=== PATIENT | female | born 1995 | race African-American/Black ===

== ENCOUNTER 2024-10-18 15:57 | Inpatient (IN) ==
[2024-10-18] MEDS ORDERED: OXYTOCIN/SODIUM CHLORIDE 500 ML IV PRN (16:42)
[2024-10-18] MEDS ORDERED: TRANEXAMIC ACID IN NACL 1,000 MG/100 ML BAG IV PRN (16:42)
[2024-10-18] MEDS ORDERED: NIFEdipine 10 MG CAPSULE PO PRN (16:42)
[2024-10-18] MEDS ORDERED: ACETAMINOPHEN 500 MG TABLET PO PRN (16:42)
[2024-10-18] MEDS ORDERED: LACTATED RINGERS 1,000 ML IV PRN (16:42)
[2024-10-18] MEDS ORDERED: DOCUSATE SODIUM 100 MG CAPSULE PO PRN (16:42)
[2024-10-18] MEDS ORDERED: ONDANSETRON ODT 4 MG TABLET PO PRN (16:42)
[2024-10-18] MEDS ORDERED: CALCIUM CARBONATE CHEW 500 MG TABLET PO PRN (16:42)
[2024-10-18] MEDS ORDERED: hydrALAZINE INJ 20 MG/ML VIAL IVP PRN (16:42)
[2024-10-18] MEDS ORDERED: TERBUTALINE 1 MG/ML VIAL SUBQ PRN (16:42)
[2024-10-18] MEDS ORDERED: OXYTOCIN 10 UNIT/ML VIAL IM PRN (16:42)
[2024-10-18] MEDS ORDERED: lidocaine 1% 20 ML MDV ID PRN (16:42)
[2024-10-18] MEDS ORDERED: LABETALOL 20 MG/4 ML SYRINGE IVP PRN ×3 (16:42)
[2024-10-18] MEDS ORDERED: miSOPROStoL 200 MCG TABLET BC PRN (16:42)
[2024-10-18] MEDS ORDERED: METHYLERGONOVINE 0.2 MG/ML VIAL IM PRN (16:42)
[2024-10-18] MEDS ORDERED: miSOPROStoL 200 MCG TABLET PR PRN (16:42)
[2024-10-18] MEDS ORDERED: diphenhydrAMINE INJ 50 MG/ML VIAL IVP PRN (16:42)
[2024-10-18] MEDS ORDERED: METOCLOPRAMIDE 10 MG/2 ML VIAL IVP PRN (16:42)
[2024-10-18] MEDS ORDERED: FAMOTIDINE 20 MG TABLET PO PRN (16:44)
--- NOTE | 2024-10-18 16:45 | HISTORY & PHYSICAL EXAMINATION ---
Admit History Visit Reason Visit Reason: Other (active labor) Smoking Status: Former smoker Other Maternal History Other Maternal History: HPI: Claudia is a 29 yo at 40w0d who is admitted for active labor. She was seen in clinic this afternoon and 4cm. Reports contractions becoming more frequent and painful so returned to L&D. Denies LOF, VB. + FM. She is now comfortable s/p epidural. Last growth US: 08/24 2323g, 91st%tile. monitoring form, copied from record: LMP: 01/12/2024 PATRICE by LMP: 10/18/2024 US: Final PATRICE: 10/18/24 by LMP c/w 14wk US Macrosomia - EFW 08/24 2323g, 91%tile H/o PPD - seeing telehealth during , has referral from [facility] to re- establish. Per records, took Lexapro prior to preg. Anemia in - on iron. 11.4 on 09/29. pyelectasis, normal NIPT. left pylectasis 10.4mm on 08/24/24. Will notify pediatrics Pre- Weight: 145lb BMI: 26 Blood type: A+ Antibody: negative CBC: PLT-273 HCT-37.4 HGB-12.0 RUB: immune VZV: immune HBsAg: negative HepC: negative RPR/AB-EIA: non-reactive HIV: negative PAP: 04/24/24- normal GC/CT: negative HSV: denies Genetic testing: Vince panorama and horizon 4 - neg Covid: Flu: declines FAS: per notes, pyelectasis bilaterally, left 6mm, right 4mm. EFW 401g. MVP 6.33. Growth US 08/24: EFW 2323g, 91%tile, vertex, posterior placenta, normal MANISH. left pyelectasis 10.4mm 50gm OGCT: 07/26-109 3HR GTT: n/a TDAP: 07/26/2024 Breast Pump: has Antibody screen: 3rd trimester H/H -31.8/10.2 PLT-205 3rd trimester HIV-negative GBS: Neg on 09/22 - chart on her phone Delivery plan: possible 39wk IOL MOD: Contraception: Mirena IUD at 6wk visit PE: Vitals signs reviewed Gen: NAD Chest: non labored respirations Abd: gravid, non tender. EFW 3800-4000g Ext: trace LE edema, no evidence of DVT SVE: 650/-2, cephalic. AROM performed with her consent, copious meconium stained fluid monitoring: FHTs: 130s bpm baseline, + accel, + early and variable decel, mod variability [place]: 2-3 min FHTs: Cat 2 Labs: T&S, CBC, CMP reviewed A/P: 29 yo at 40w0d who is admitted for active labor. - Labor - GBS neg - Rh + - Rubella immune - Varicella immune - S/p AROM, repeat SVE in 2 hrs or sooner PRN. Darryn Clay MD HPI Current : Vital Signs Temperature 98.4 F 10/18/24 16:06 Pulse Rate 98 10/18/24 16:06 Respiratory Rate 16 10/18/24 16:06 Blood Pressure 131/81 H 10/18/24 16:06 Meds/Allgy Home Medications Ambulatory Orders Medication Instructions Recorded Confirmed ferrous sulfate 325 mg (65 mg 325 mg PO DAILY #60 tabs 09/29/24 10/18/24 iron) tablet,delayed release magnesium oxide 400 mg PO DAILY #30 tabs 09/29/24 10/18/24 ascorbate calcium (vitamin C) 500 500 mg PO QDAY 10/04/24 10/18/24 mg tablet vits no.126-ferrous fum tab PO QDAY 10/04/24 10/18/24 28 mg iron-folic acid 800 mcg tablet (Classic ) famotidine 20 mg tablet (Pepcid) 20 mg PO BID #60 tabs 10/05/24 10/18/24 Allergies Allergies Allergy/AdvReac Type Severity Reaction Status Date / Time No Known Drug Allergies Allergy Verified 10/18/24 16:07 [facility] Medical History Medical History (Updated 10/05/24 @ 15:24 by Darryn Clay MD) Gestational edema with proteinuria in third trimester depression Surgical History Surgical History (Updated 10/04/24 @ 11:12 by Gisselle Fuentes RN) H/O excision of ganglion cyst 9 years old Family History Family History (Updated 10/05/24 @ 14:11 by Huyen Arceo RN) Father Rheumatoid arthritis High blood pressure Throat cancer Anxiety Depressed Mother Diabetes High blood pressure Anxiety Depressed Maternal grandfather Diabetes Social History Social History (Updated 10/04/24 @ 11:13 by Gisselle Fuentes RN) Smoking Status: Never smoker If you are a former smoker, when did you quit? (Date/Year): 12/27/2023 Second hand tobacco smoke exposure: No Do you dip or chew tobacco?: No Do you vape?: No Patient requests smoking cessation consult: No Initiate information on smoking cessation: No Living arrangement: At home Living Condition: With spouse/s.o. and With family Level: Independent ETOH Use: None Substance Use: denies use Are you sexually active?: Yes Control Method: None Physical Abdominal Exam Vital Signs: Temp Pulse Resp BP 98.4 F 98 16 131/81 H 10/18/24 16:06 10/18/24 16:06 10/18/24 16:06 10/18/24 16:06 Plan for Labor Plan For Labor I expect patient to be DC'd or transferred within 96 hours.: Yes Conclusion/Plan Lab Results 10/18/24 17:10 10/18/24 17:10
[2024-10-18] MEDS: fentaNYL 100 MCG/2 ML VIAL IVP PRN (17:13)
[2024-10-18] MEDS ORDERED: ROPIVACAINE 0.2% 200 MG/100 ML BAG EP ONE (17:14)
[2024-10-18] MEDS ORDERED: LIDOCAINE 2%-EPI 1:100000 20 ML MDV ONE (17:14)
[2024-10-18] MEDS: LACTATED RINGERS 1,000 ML IV SCH (17:19)
[2024-10-18] MEDS: SODIUM CHLORIDE FLUSH 0.9% 10 ML SYRINGE IVP PRN (17:25)
[2024-10-18 17:30] LABS: BASOPHILS % (AUTO) 0.2 %; HCT - HEMATOCRIT 37.1 % (37.0-47.0); HGB - HEMOGLOBIN 12.4 g/dL (12.0-16.0); LYMPHOCYTES # (AUTO) 0.9 10^3/uL (1.5-3.5); LYMPHOCYTES % (AUTO) 9.1 %; MEAN CORPUSCULAR HEMOGLOBIN 28.6 pg (27.0-31.0); MEAN CORPUSCULAR HGB CONC 33.4 g/dL (32.0-36.0); MEAN CORPUSCULAR VOLUME 85.7 fL (81.0-99.0); MEAN PLATELET VOLUME 10.2 fL (7.9-10.8); MONOCYTES # (AUTO) 0.6 10^3/uL (0.0-1.0); MONOCYTES % (AUTO) 5.4 %; NEUTROPHILS # (AUTO) 8.8 10^3/uL (1.5-6.6); NEUTROPHILS % (AUTO) 84.6 %; PLT - PLATELET COUNT 195 10^3/uL (130-450); RED BLOOD COUNT 4.33 10^6/uL (4.20-5.40); RED CELL DISTRIBUTION WIDTH 14.5 % (12.0-15.0); WHITE BLOOD COUNT 10.4 x10^3/uL (4.8-10.8)
[2024-10-18 17:41] LABS: ALBUMIN 3.5 g/dL (3.2-5.5); ALBUMIN/GLOBULIN RATIO 1.1 (1.0-2.2); BILIRUBIN,TOTAL 0.3 mg/dL (0.2-1.0); CALCIUM 9.2 mg/dL (8.5-10.3); CREATININE 0.5 mg/dL (0.6-1.3); POTASSIUM 3.9 mmol/L (3.5-4.5); TOTAL PROTEIN 6.8 g/dL (6.4-8.9)
--- NOTE | 2024-10-18 18:47 | ANESTHESIA PROCEDURE NOTE ---
Pre-Anesthesia VS, & Labs Diagnosis Surgical Diagnosis:: Active labor Procedure Procedure: Vaginal delivery Vitals Vital Signs: Temp Pulse Resp BP 36.8 C 98 16 124/74 10/18/24 16:53 10/18/24 16:53 10/18/24 16:53 10/18/24 16:53 Is Patient ?: Yes Lab Results Current Lab Results: Laboratory Tests 10/18/24 17:10: WBC 10.4, RBC 4.33, Hgb 12.4, Hct 37.1, MCV 85.7, MCH 28.6, MCHC 33.4, RDW 14.5, Plt Count 195, MPV 10.2, Neut # (Auto) 8.8 H, Lymph # (Auto) 0.9 L, [place] # (Auto) 0.6, Eos # (Auto) 0.0, Baso # (Auto) 0.0, Absolute Nucleated RBC 0.00, Nucleated RBC % 0.0, Sodium 134 L, Potassium 3.9, Chloride 104, Carbon Dioxide 24, Anion Gap 6.0, BUN 6, Creatinine 0.5 L, Estimated GFR (MDRD) 178, G lucose 110 H, Calcium 9.2, Total Bilirubin 0.3, AST 20, ALT 13, Alkaline Phosphatase 167 H, Total Protein 6.8, Albumin 3.5, Globulin 3.3, Albumin/Globulin Ratio 1.1, Blood Type A POSITIVE, Antibody Screen NEGATIVE Lab results reviewed: Yes 10/18/24 17:10 10/18/24 17:10 Meds/Allgy Home Medications Ambulatory Orders Medication Instructions Recorded Confirmed ferrous sulfate 325 mg (65 mg 325 mg PO DAILY #60 tabs 09/29/24 10/18/24 iron) tablet,delayed release magnesium oxide 400 mg PO DAILY #30 tabs 09/29/24 10/18/24 ascorbate calcium (vitamin C) 500 500 mg PO QDAY 10/04/24 10/18/24 mg tablet vits no.126-ferrous fum tab PO QDAY 10/04/24 10/18/24 28 mg iron-folic acid 800 mcg tablet (Classic ) famotidine 20 mg tablet (Pepcid) 20 mg PO BID #60 tabs 10/05/24 10/18/24 Allergies Allergies Allergy/AdvReac Type Severity Reaction Status Date / Time No Known Drug Allergies Allergy Verified 10/18/24 16:07 [facility] Medical History Medical History Gestational edema with proteinuria in third trimester depression Surgical History Surgical History H/O excision of ganglion cyst 9 years old Family History Family History (Updated 10/05/24 @ 14:11 by Huyen Arceo, RN) Father Rheumatoid arthritis High blood pressure Throat cancer Anxiety Depressed Mother Diabetes High blood pressure Anxiety Depressed Maternal grandfather Diabetes Social History Social History (Updated 10/04/24 @ 11:13 by Gisselle Fuentes RN) Smoking Status: Never smoker If you are a former smoker, when did you quit? (Date/Year): 12/27/2023 Second hand tobacco smoke exposure: No Do you dip or chew tobacco?: No Do you vape?: No Patient requests smoking cessation consult: No Initiate information on smoking cessation: No Living arrangement: At home Living Condition: With spouse/s.o. and With family Level: Independent ETOH Use: None Substance Use: denies use Are you sexually active?: Yes Control Method: None Anesthesia Exam (Expanded) Exam General: Alert, Oriented x3 and Cooperative Dental: WNL Mouth Openin Fingerbreadth Neck Mobility: Normal Mallampati classification: II Thyromental Distance: 4-6 cm Plan Plan Anesthesia Type: Epidural Consent for Procedure(s) Verified and Reviewed: Yes Code Status: Attempt Resuscitation ASA Classification ASA classification: 2-Mild systemic disease Is this case an emergency?: No
[2024-10-18] MEDS ORDERED: ROPIVACAINE 0.2% 200 MG/100 ML BAG EP PRN (18:48)
[2024-10-18] MEDS ORDERED: ePHEDrine 50 MG/ML VIAL IVP PRN (18:48)
[2024-10-18] MEDS ORDERED: ONDANSETRON 4 MG/2 ML VIAL IVP PRN (18:48)
[2024-10-18] MEDS ORDERED: NALOXONE 0.4 MG/ML VIAL IVP PRN (18:48)
[2024-10-18] MEDS: SODIUM CHLORIDE FLUSH 0.9% 10 ML SYRINGE IVP SCH (19:48)
[2024-10-18] MEDS: diphenhydrAMINE INJ 50 MG/ML VIAL IVP PRN (23:06)
[2024-10-18] MEDS ORDERED: LIDOCAINE-PF 2% 10 ML AMP SUBQ ONE (23:12)
[2024-10-18] MEDS ORDERED: fentaNYL 100 MCG/2 ML VIAL ONE (23:12)
[2024-10-18] MEDS ORDERED: SODIUM CHLORIDE 0.9% 10 ML VIAL IVP ONE (23:14)
--- NOTE | 2024-10-18 23:25 | PROVIDER PROGRESS NOTE ---
Labor Progress Note Labor Progress Note Labor Progress Note/Additional Text: S: Feeling lots of pressure with contractions. RN has called anesthesia to assess. O: VS reviewed SVE: /-1, some swelling of the cervix noted monitoring: FHTs: 170s bpm baseline, + late and variable decelerations, mod variability, + accelerations [place]: 2-3 min Cat 2 A/P: 29 yo at 40w0d admitted in active labor. - Discussed IV benadryl for swollen cervix, she accepts. - Anesthesia to assess pain control - IV fluid bolus given for decelerations, continue position changes. - Repeat SVE in 1-2 hrs or sooner PRKayleigh Clay MD
--- NOTE | 2024-10-19 00:10 | ANESTHESIA PROCEDURE NOTE ---
Anesthesia Epidural Template Other Comments Other Comments: Called for inadequate pain control with contractions. Patient reports pain is mostly pelvic pressure. Epidural bolused with 2% lidocaine 5ml with 100mcg fentanyl and 10ml PF NS. Epidural infusion settings changed to PIEB 12ml q 45 mins with no PCEA. Patient's pain improved after bolus.
--- NOTE | 2024-10-19 00:45 | PROVIDER PROGRESS NOTE ---
Labor Progress Note Labor Progress Note Labor Progress Note/Additional Text: Claudia feeling more pressure. SVE repeated, 9.5 and 0 station with cervix still present on the right side. Attempted pushing with 3 contractions but cervix remains. FHTs Cat 2 with repetitive late and variable decelerations, mod varia bility. Since she is continuing to make progress in active labor, will continue to monitor closely. Repositioned on her right side. Anticipate we will be able to start pushing soon.
[2024-10-19] MEDS: OXYTOCIN/SODIUM CHLORIDE 500 ML IV PRN (03:07)
[2024-10-19] MEDS ORDERED: SIMETHICONE CHEW 80 MG TABLET PO PRN (03:25)
[2024-10-19] MEDS ORDERED: MAGNESIUM HYDROXIDE 2,400 MG/30 ML UDC PO PRN (03:25)
[2024-10-19] MEDS ORDERED: NIFEdipine 10 MG CAPSULE PO PRN (03:25)
[2024-10-19] MEDS ORDERED: oxyCODONE 5 MG TABLET PO PRN (03:25)
[2024-10-19] MEDS ORDERED: NALOXONE 0.4 MG/ML VIAL IVP PRN (03:25)
[2024-10-19] MEDS ORDERED: LABETALOL 5 MG/1 ML 20 ML MDV IVP PRN (03:25)
[2024-10-19] MEDS ORDERED: hydrALAZINE INJ 20 MG/ML VIAL IVP PRN ×2 (03:25)
[2024-10-19] MEDS ORDERED: LABETALOL 20 MG/4 ML SYRINGE IVP PRN ×2 (03:25)
--- NOTE | 2024-10-19 03:35 | DELIVERY NOTE ---
Delivery Note Labor Labor: positive Spontaneous and Augmented by ARM Delivery Method Delivery Method: positive Spontaneous vaginal delivery Presentation Presentation: positive Vertex and CHERELLE - left occiput anterior Nuchal Cord Nuchal Cord: positive None Amniotic Fluid Description Amniotic Fluid Description: positive Thick meconium Episiotomy Type Episiotomy Type: positive None Laceration Laceration: positive 1st degree (hemostatic) Delivery Outcome Delivery Outcome: positive Livebirth [place] : positive Placed in direct skin contact with mother sex: positive Male Cord Cord: positive 3 vessels Placenta Placenta: positive Intact, Expressed and Meconium stained Estimated Blood Loss Estimated Blood Loss (in cc): 100 Post Delivery Events Post Delivery Events: positive No post delivery events Delivery Comments (Free Text/Narrative) Delivery Comments (Free Text/Narrative): Claudia was examined at bedside at found to be anterior lip and 0 station. Due to Cat 2 tracing, we attempted trial of pushing and the anterior lip resolved. She pushed with excellent effort, with slow but steady progress. While pushing, an FSE was plaed with Claudia's consent as we were concerned we were not tracing baby (mom and baby heart rate very similiar). After delivery of the head, the anterior shoulder delivered easily with maternal effort and gentle downward pressure followed by the posterior shoulder and the remainder of the body. The was placed on the mother's abdomen. After approximately 60 sec the cord was clamped times two and cut. The infant was taken to the radiant warmer by the block splitter operator for further evaluation. Cord blood collected. Pitocin was started. The placenta was delivered intact. Excellent uterine tone noted. The first degree perineal laceration was hemostatic and not repaired.
[2024-10-19] MEDS: ACETAMINOPHEN 500 MG TABLET PO PRN (04:20)
[2024-10-19] MEDS: IBUPROFEN 600 MG TABLET PO PRN (04:20)
--- NOTE | 2024-10-19 10:50 | PROVIDER PROGRESS NOTE ---
Subjective Prog Note Date Prog Note Date: 10/19/24 Subjective Subjective: She reports that she is feeling well. Pain is well controlled with current medications. She is ambulating without difficulty. She is tolerating a normal diet. She is voiding without difficulty - has had excellent urine output since delivery last night. Lochia reported as normal. Current Medications Current Medications Current Medications: Current Medications Generic Name Dose Route Start Last Admin Trade Name Freq PRN Reason Stop Dose Admin Acetaminophen 1,000 mg 10/19/24 03:25 10/19/24 04:20 Acetaminophen 500 Mg Tablet PO 1,000 mg Q8HR PRN Administration Mild Pain or Fever>38C(100.4F) Calcium Carbonate/Glycine 1,000 mg 10/18/24 16:42 Calcium Carbonate Chew 500 Mg Tablet PO Q6HR PRN Heartburn Docusate Sodium 200 mg 10/18/24 16:42 Docusate Sodium 100 Mg Capsule PO BID PRN Constipation Docusate Sodium 100 mg 10/19/24 09:00 Docusate Sodium 100 Mg Capsule PO BID SAVANA Ephedrine Sulfate 5 mg 10/18/24 18:48 Ephedrine 50 Mg/Ml Vial IVP Q5M PRN For SBP<100;give until SBP>100 Famotidine 20 mg 10/18/24 16:44 Famotidine 20 Mg Tablet PO BID PRN Heartburn Hydralazine HCl 5 - 10 mg 10/18/24 16:42 Hydralazine Inj 20 Mg/Ml Vial IVP Q20M PRN SBP> or= 160 OR DBP> or= 110 Protocol Hydralazine HCl 10 mg 10/19/24 03:25 Hydralazine Inj 20 Mg/Ml Vial IVP .ONCE PRN SBP> or= 160 OR DBP> or= 110 Protocol Hydralazine HCl 5 - 10 mg 10/19/24 03:25 Hydralazine Inj 20 Mg/Ml Vial IVP Q20M PRN SBP >=160 and/or DBP >=110 Protocol Oxytocin/Sodium Chloride 500 mls @ 999 mls/hr 10/18/24 16:42 Pitocin/Sodium Chloride IV PRN PRN POST- HEMORR PREVENTION Protocol 999 MILLIUNIT/MIN Tranexamic Acid 1,000 mg in 100 mls @ 600 mls/hr 10/18/24 16:42 Tranexamic 1,000 Mg/100ml-Nacl IV Q30M PRN EBL >1200mL and within 3hr Ropivacaine 200 mg in 100 mls @ 0 mls/hr 10/18/24 18:48 Naropin 0.2% EP PRN PRN PAIN Protocol Per Protocol Lactated Ringer's 1,000 mls @ 75 mls/hr 10/18/24 20:00 10/19/24 09:00 Lr IV 0 mls/hr .[id number] SAVANA Infusion Oxytocin/Sodium Chloride 500 mls @ 999 mls/hr 10/19/24 03:25 10/19/24 04:59 Pitocin/Sodium Chloride IV Infused PRN PRN Titration POST- HEMORR PREVENTION Protocol 999 MILLIUNIT/MIN Ibuprofen 600 mg 10/19/24 03:25 10/19/24 04:20 Ibuprofen 600 Mg Tablet PO 600 mg Q6HR PRN Administration Moderate Pain (Level 4-6) Labetalol HCl 20 - 80 mg 10/18/24 16:42 Labetalol 20 Mg/4 Ml Syringe IVP Q10M PRN SBP> or= 160 OR DBP> or= 110 Protocol Labetalol HCl 20 mg 10/18/24 16:42 Labetalol 20 Mg/4 Ml Syringe IVP .ONCE PRN SBP> or= 160 OR DBP> or= 110 Protocol Labetalol HCl 20 - 40 mg 10/18/24 16:42 Labetalol 20 Mg/4 Ml Syringe IVP Q10M PRN SBP> or= 160 OR DBP> or= 110 Protocol Labetalol HCl 20 - 80 mg 10/19/24 03:25 Labetalol 5 Mg/1 Ml 20 Ml Mdv IVP Q10M PRN SBP> or= 160 OR DBP> or= 110 Protocol Labetalol HCl 20 - 40 mg 10/19/24 03:25 Labetalol 20 Mg/4 Ml Syringe IVP Q10M PRN SBP> or= 160 OR DBP> or= 110 Protocol Labetalol HCl 20 mg 10/19/24 03:25 Labetalol 20 Mg/4 Ml Syringe IVP .ONCE PRN SBP >=160 and/or DBP >=110 Protocol Magnesium Hydroxide 2,400 mg 10/19/24 03:25 Magnesium Hydroxide 2,400 Mg/30 Ml Udc PO Q8HR PRN Constipation Methylergonovine Maleate 0.2 mg 10/18/24 16:42 Methylergonovine 0.2 Mg/Ml Vial IM .ONCE PRN Hemorrhage Metoclopramide HCl 5 mg 10/18/24 16:42 Metoclopramide 10 Mg/2 Ml Vial IVP Q6HR PRN Nausea / Vomiting Naloxone HCl 0.1 mg 10/18/24 18:48 Naloxone 0.4 Mg/Ml Vial IVP Q2M PRN RR<8 Naloxone HCl 0.4 mg 10/19/24 03:25 Naloxone 0.4 Mg/Ml Vial IVP .ONCE PRN Opioid Overdose Nifedipine 10 - 20 mg 10/18/24 16:42 Nifedipine 10 Mg Capsule PO Q20M PRN SBP> or= 160 OR DBP> or= 110 Protocol Nifedipine 10 - 20 mg 10/19/24 03:25 Nifedipine 10 Mg Capsule PO Q20M PRN SBP >=160 and/or DBP >=110 Protocol Ondansetron HCl 4 mg 10/18/24 16:42 Ondansetron Odt 4 Mg Tablet PO Q4HR PRN Nausea / Vomiting Ondansetron HCl 4 mg 10/18/24 18:48 Ondansetron 4 Mg/2 Ml Vial IVP Q6HR PRN Nausea / Vomiting Oxycodone HCl 5 mg 10/19/24 03:25 Oxycodone 5 Mg Tablet PO Q4HR PRN Severe Pain 6-10 Simethicone 80 mg 10/19/24 03:25 Simethicone Chew 80 Mg Tablet PO TID PRN Gas Sodium Chloride 10 ml 10/18/24 16:42 10/18/24 17:25 Sodium Chloride Flush 0.9% 10 Ml Syringe IVP 10 ml PRN PRN Administration NEEDED PER PROVIDER ORDERS Sodium Chloride 10 ml 10/18/24 17:00 10/19/24 04:47 Sodium Chloride Flush 0.9% 10 Ml Syringe IVP Not Given Q8H SAVANA Objective Vital Signs/Intake & Output Reviewed Vital Signs: Yes Vital Signs: Vital Signs x48h Temp Pulse Resp Pulse Ox 10/19/24 02:52 99.5 F 158 H 19 100 Intake & Output: Intake & Output 10/16/24 10/17/24 10/18/24 10/19/24 23:59 23:59 23:59 23:59 Intake Total 660 / 660 2446 / 2446 Output Total 50 / 50 650 / 650 Balance 610 / 610 1796 / 1796 Weight (kg) 199 lb 15.983 oz Objective Comments/Other: GEN: NAD Resp: non-labored respirations ABDOMEN: Soft, non tender. Fundus firm. EXT: 1+ LE edema. No evidence of DVT. Lab Results 10/18/24 17:10 10/18/24 17:10 Other Labs: Lab Results x24hrs 10/18/24 Range/Units 17:10 WBC 10.4 (4.8-10.8) x10^3/uL RBC 4.33 (4.20-5.40) 10^6/uL Hgb 12.4 (12.0-16.0) g/dL Hct 37.1 (37.0-47.0) % MCV 85.7 (81.0-99.0) fL MCH 28.6 (27.0-31.0) pg MCHC 33.4 (32.0-36.0) g/dL RDW 14.5 (12.0-15.0) % Plt Count 195 (130-450) 10^3/uL MPV 10.2 (7.9-10.8) fL Neut # (Auto) 8.8 H (1.5-6.6) 10^3/uL Lymph # (Auto) 0.9 L (1.5-3.5) 10^3/uL [place] # (Auto) 0.6 (0.0-1.0) 10^3/uL Eos # (Auto) 0.0 (0.0-0.7) 10^3/uL Baso # (Auto) 0.0 (0.0-0.1) 10^3/uL Absolute Nucleated RBC 0.00 x10^3/uL Nucleated RBC % 0.0 /100WBC Sodium 134 L (135-145) mmol/L Potassium 3.9 (3.5-4.5) mmol/L Chloride 104 (101-111) mmol/L Carbon Dioxide 24 (21-32) mmol/L Anion Gap 6.0 (6-13) BUN 6 (6-20) mg/dL Creatinine 0.5 L (0.6-1.3) mg/dL Estimated GFR (MDRD) 178 (>89) Glucose 110 H (74-104) mg/dL Calcium 9.2 (8.5-10.3) mg/dL Total Bilirubin 0.3 (0.2-1.0) mg/dL AST 20 (10-42) IU/L ALT 13 (10-60) IU/L Alkaline Phosphatase 167 H (42-121) IU/L Total Protein 6.8 (6.4-8.9) g/dL Albumin 3.5 (3.2-5.5) g/dL Globulin 3.3 (2.1-4.2) g/dL Albumin/Globulin Ratio 1.1 (1.0-2.2) Blood Type A POSITIVE Antibody Screen NEGATIVE Assessment/Plan Problem List (1) care and examination of lactating mother: Impression: - Continue routine care - Significantly tachycardic during pushing last evening as well as low UOP, however, this has resolved overnight. VS now normal and making excellent UOP. IV fluids stopped this morning. (2) Mixed anxiety and depressive disorder:
[2024-10-19] MEDS: DOCUSATE SODIUM 100 MG CAPSULE PO SCH (10:54)
--- NOTE | 2024-10-19 11:15 | PHARMACY PROGRESS NOTE ---
Best Possible Medication History Admit Date and Time: 10/18/24 1645 Home Medications Medication Instructions Recorded Confirmed Type ferrous sulfate 325 mg (65 mg 325 mg PO DAILY #60 tabs 09/29/24 10/19/24 Rx iron) tablet,delayed release ascorbate calcium (vitamin C) 500 500 mg PO QDAY 10/04/24 10/19/24 History mg tablet vits no.126-ferrous fum 1 tab PO DAILY 10/04/24 10/19/24 History 28 mg iron-folic acid 800 mcg tablet (Classic ) Processed by: Pharmacy Medications reviewed in ED?: No Medication History completed: Yes Patient Interview: Completed (BY VP ANCILLARYELIZABETH) Secondary Source(s): Insurance records [facility] Statement: As the person ultimately responsible for medication therapy, providers are able to order a medication from an existing home medication list in [facility] via the "Reconcile Routine" prior to Confirmation of that medication by wan support specialist. Such practice is discouraged except when the physician, in their clinical judgment, deems that a medical need exists for a medication without regard to previous use.
--- NOTE | 2024-10-19 20:51 | PROVIDER PROGRESS NOTE ---
Subjective Prog Note Date Prog Note Date: 10/19/24 Prog Note Time: 17:25 Subjective Pt reports feeling: Improved Subjective: doing well pp. breast feeding. pain controlled. not bleeding much. Current Medications Current Medications Current Medications: Current Medications Generic Name Dose Route Start Last Admin Trade Name Freq PRN Reason Stop Dose Admin Acetaminophen 1,000 mg 10/19/24 03:25 10/19/24 20:18 Acetaminophen 500 Mg Tablet PO 1,000 mg Q8HR PRN Administration Mild Pain or Fever>38C(100.4F) Calcium Carbonate/Glycine 1,000 mg 10/18/24 16:42 Calcium Carbonate Chew 500 Mg Tablet PO Q6HR PRN Heartburn Docusate Sodium 200 mg 10/18/24 16:42 Docusate Sodium 100 Mg Capsule PO BID PRN Constipation Docusate Sodium 100 mg 10/19/24 09:00 10/19/24 20:19 Docusate Sodium 100 Mg Capsule PO 100 mg BID SAVANA Administration Ephedrine Sulfate 5 mg 10/18/24 18:48 Ephedrine 50 Mg/Ml Vial IVP Q5M PRN For SBP<100;give until SBP>100 Famotidine 20 mg 10/18/24 16:44 Famotidine 20 Mg Tablet PO BID PRN Heartburn Hydralazine HCl 5 - 10 mg 10/18/24 16:42 Hydralazine Inj 20 Mg/Ml Vial IVP Q20M PRN SBP> or= 160 OR DBP> or= 110 Protocol Hydralazine HCl 10 mg 10/19/24 03:25 Hydralazine Inj 20 Mg/Ml Vial IVP .ONCE PRN SBP> or= 160 OR DBP> or= 110 Protocol Hydralazine HCl 5 - 10 mg 10/19/24 03:25 Hydralazine Inj 20 Mg/Ml Vial IVP Q20M PRN SBP >=160 and/or DBP >=110 Protocol Oxytocin/Sodium Chloride 500 mls @ 999 mls/hr 10/18/24 16:42 Pitocin/Sodium Chloride IV PRN PRN POST- HEMORR PREVENTION Protocol 999 MILLIUNIT/MIN Tranexamic Acid 1,000 mg in 100 mls @ 600 mls/hr 10/18/24 16:42 Tranexamic 1,000 Mg/100ml-Nacl IV Q30M PRN EBL >1200mL and within 3hr Ropivacaine 200 mg in 100 mls @ 0 mls/hr 10/18/24 18:48 Naropin 0.2% EP PRN PRN PAIN Protocol Per Protocol Lactated Ringer's 1,000 mls @ 75 mls/hr 10/18/24 20:00 10/19/24 09:00 Lr IV 0 mls/hr .[id number] SAVANA Infusion Oxytocin/Sodium Chloride 500 mls @ 999 mls/hr 10/19/24 03:25 10/19/24 04:59 Pitocin/Sodium Chloride IV Infused PRN PRN Titration POST- HEMORR PREVENTION Protocol 999 MILLIUNIT/MIN Ibuprofen 600 mg 10/19/24 03:25 10/19/24 17:51 Ibuprofen 600 Mg Tablet PO 600 mg Q6HR PRN Administration Moderate Pain (Level 4-6) Labetalol HCl 20 - 80 mg 10/18/24 16:42 Labetalol 20 Mg/4 Ml Syringe IVP Q10M PRN SBP> or= 160 OR DBP> or= 110 Protocol Labetalol HCl 20 mg 10/18/24 16:42 Labetalol 20 Mg/4 Ml Syringe IVP .ONCE PRN SBP> or= 160 OR DBP> or= 110 Protocol Labetalol HCl 20 - 40 mg 10/18/24 16:42 Labetalol 20 Mg/4 Ml Syringe IVP Q10M PRN SBP> or= 160 OR DBP> or= 110 Protocol Labetalol HCl 20 - 80 mg 10/19/24 03:25 Labetalol 5 Mg/1 Ml 20 Ml Mdv IVP Q10M PRN SBP> or= 160 OR DBP> or= 110 Protocol Labetalol HCl 20 - 40 mg 10/19/24 03:25 Labetalol 20 Mg/4 Ml Syringe IVP Q10M PRN SBP> or= 160 OR DBP> or= 110 Protocol Labetalol HCl 20 mg 10/19/24 03:25 Labetalol 20 Mg/4 Ml Syringe IVP .ONCE PRN SBP >=160 and/or DBP >=110 Protocol Magnesium Hydroxide 2,400 mg 10/19/24 03:25 Magnesium Hydroxide 2,400 Mg/30 Ml Udc PO Q8HR PRN Constipation Methylergonovine Maleate 0.2 mg 10/18/24 16:42 Methylergonovine 0.2 Mg/Ml Vial IM .ONCE PRN Hemorrhage Metoclopramide HCl 5 mg 10/18/24 16:42 Metoclopramide 10 Mg/2 Ml Vial IVP Q6HR PRN Nausea / Vomiting Naloxone HCl 0.1 mg 10/18/24 18:48 Naloxone 0.4 Mg/Ml Vial IVP Q2M PRN RR<8 Naloxone HCl 0.4 mg 10/19/24 03:25 Naloxone 0.4 Mg/Ml Vial IVP .ONCE PRN Opioid Overdose Nifedipine 10 - 20 mg 10/18/24 16:42 Nifedipine 10 Mg Capsule PO Q20M PRN SBP> or= 160 OR DBP> or= 110 Protocol Nifedipine 10 - 20 mg 10/19/24 03:25 Nifedipine 10 Mg Capsule PO Q20M PRN SBP >=160 and/or DBP >=110 Protocol Ondansetron HCl 4 mg 10/18/24 16:42 Ondansetron Odt 4 Mg Tablet PO Q4HR PRN Nausea / Vomiting Ondansetron HCl 4 mg 10/18/24 18:48 Ondansetron 4 Mg/2 Ml Vial IVP Q6HR PRN Nausea / Vomiting Oxycodone HCl 5 mg 10/19/24 03:25 Oxycodone 5 Mg Tablet PO Q4HR PRN Severe Pain 6-10 Simethicone 80 mg 10/19/24 03:25 Simethicone Chew 80 Mg Tablet PO TID PRN Gas Sodium Chloride 10 ml 10/18/24 16:42 10/18/24 17:25 Sodium Chloride Flush 0.9% 10 Ml Syringe IVP 10 ml PRN PRN Administration NEEDED PER PROVIDER ORDERS Sodium Chloride 10 ml 10/18/24 17:00 10/19/24 04:47 Sodium Chloride Flush 0.9% 10 Ml Syringe IVP Not Given Q8H SAVANA Objective Vital Signs/Intake & Output Vital Signs: Vital Signs x48h Temp Pulse Resp BP Pulse Ox 10/19/24 20:25 36.6 C 85 18 136/77 H 97 10/19/24 17:45 36.8 C 90 20 126/67 Intake & Output: Intake & Output 10/16/24 10/17/24 10/18/24 10/19/24 23:59 23:59 23:59 23:59 Intake Total 660 / 660 2446 / 2446 Output Total 50 / 50 1150 / 1150 Balance 610 / 610 1296 / 1296 Weight (kg) 199 lb 15.983 oz Objective General Appearance: positive No acute distress Lab Results 10/18/24 17:10 10/18/24 17:10 Assessment/Plan Problem List (1) care and examination of lactating mother: Impression: routine care discharge tomorrow. (2) Mixed anxiety and depressive disorder:
[2024-10-20 07:27] VITALS: O2SAT 98
--- NOTE | 2024-10-20 13:00 | PROVIDER PROGRESS NOTE ---
Subjective Prog Note Date Prog Note Date: 10/20/24 Prog Note Time: 12:55 Subjective Subjective: Having a headache today, intermittent. Frontal, comes on which she sits up or stands up, lasts for a few minutes, up to 20min, and then will resolve. Feels a lot of muscle tension in her shoulder and arms too. Would like to try flexeril and see if that helps. Has been seen by anesthesia to evaluate for possible spinal headache. She is , at bedside, being evaluated for elevated LFTs. Lochia is appropriate. Urinating and ambulating without difficulty. Current Medications Current Medications Current Medications: Current Medications Generic Name Dose Route Start Last Admin Trade Name Freq PRN Reason Stop Dose Admin Acetaminophen 1,000 mg 10/19/24 03:25 10/20/24 09:33 Acetaminophen 500 Mg Tablet PO 1,000 mg Q8HR PRN Administration Mild Pain or Fever>38C(100.4F) Calcium Carbonate/Glycine 1,000 mg 10/18/24 16:42 Calcium Carbonate Chew 500 Mg Tablet PO Q6HR PRN Heartburn Cyclobenzaprine HCl 10 mg 10/20/24 12:53 Cyclobenzaprine 10 Mg Tablet PO TID PRN Spasms Docusate Sodium 200 mg 10/18/24 16:42 Docusate Sodium 100 Mg Capsule PO BID PRN Constipation Docusate Sodium 100 mg 10/19/24 09:00 10/20/24 09:33 Docusate Sodium 100 Mg Capsule PO 100 mg BID SAVANA Administration Famotidine 20 mg 10/18/24 16:44 Famotidine 20 Mg Tablet PO BID PRN Heartburn Hydralazine HCl 5 - 10 mg 10/18/24 16:42 Hydralazine Inj 20 Mg/Ml Vial IVP Q20M PRN SBP> or= 160 OR DBP> or= 110 Protocol Hydralazine HCl 10 mg 10/19/24 03:25 Hydralazine Inj 20 Mg/Ml Vial IVP .ONCE PRN SBP> or= 160 OR DBP> or= 110 Protocol Hydralazine HCl 5 - 10 mg 10/19/24 03:25 Hydralazine Inj 20 Mg/Ml Vial IVP Q20M PRN SBP >=160 and/or DBP >=110 Protocol Ropivacaine 200 mg in 100 mls @ 0 mls/hr 10/18/24 18:48 Naropin 0.2% EP PRN PRN PAIN Protocol Per Protocol Ibuprofen 600 mg 10/19/24 03:25 10/20/24 07:25 Ibuprofen 600 Mg Tablet PO 600 mg Q6HR PRN Administration Moderate Pain (Level 4-6) Labetalol HCl 20 - 80 mg 10/18/24 16:42 Labetalol 20 Mg/4 Ml Syringe IVP Q10M PRN SBP> or= 160 OR DBP> or= 110 Protocol Labetalol HCl 20 mg 10/18/24 16:42 Labetalol 20 Mg/4 Ml Syringe IVP .ONCE PRN SBP> or= 160 OR DBP> or= 110 Protocol Labetalol HCl 20 - 40 mg 10/18/24 16:42 Labetalol 20 Mg/4 Ml Syringe IVP Q10M PRN SBP> or= 160 OR DBP> or= 110 Protocol Labetalol HCl 20 - 80 mg 10/19/24 03:25 Labetalol 5 Mg/1 Ml 20 Ml Mdv IVP Q10M PRN SBP> or= 160 OR DBP> or= 110 Protocol Labetalol HCl 20 - 40 mg 10/19/24 03:25 Labetalol 20 Mg/4 Ml Syringe IVP Q10M PRN SBP> or= 160 OR DBP> or= 110 Protocol Labetalol HCl 20 mg 10/19/24 03:25 Labetalol 20 Mg/4 Ml Syringe IVP .ONCE PRN SBP >=160 and/or DBP >=110 Protocol Magnesium Hydroxide 2,400 mg 10/19/24 03:25 Magnesium Hydroxide 2,400 Mg/30 Ml Udc PO Q8HR PRN Constipation Naloxone HCl 0.1 mg 10/18/24 18:48 Naloxone 0.4 Mg/Ml Vial IVP Q2M PRN RR<8 Nifedipine 10 - 20 mg 10/18/24 16:42 Nifedipine 10 Mg Capsule PO Q20M PRN SBP> or= 160 OR DBP> or= 110 Protocol Nifedipine 10 - 20 mg 10/19/24 03:25 Nifedipine 10 Mg Capsule PO Q20M PRN SBP >=160 and/or DBP >=110 Protocol Ondansetron HCl 4 mg 10/18/24 16:42 Ondansetron Odt 4 Mg Tablet PO Q4HR PRN Nausea / Vomiting Oxycodone HCl 5 mg 10/19/24 03:25 Oxycodone 5 Mg Tablet PO Q4HR PRN Severe Pain 6-10 Simethicone 80 mg 10/19/24 03:25 Simethicone Chew 80 Mg Tablet PO TID PRN Gas Objective Vital Signs/Intake & Output Reviewed Vital Signs: Yes Vital Signs: Vital Signs x48h Temp Pulse Resp BP Pulse Ox 10/20/24 07:26 97.9 F 72 16 120/75 98 Intake & Output: Intake & Output 10/17/24 10/18/24 10/19/24 10/20/24 23:59 23:59 23:59 23:59 Intake Total 660 / 660 2446 / 2446 Output Total 50 / 50 1150 / 1150 Balance 610 / 610 1296 / 1296 Weight (kg) 199 lb 15.983 oz Lab Results 10/18/24 17:10 10/18/24 17:10 Other Labs: GEN: NAD Resp: non-labored respirations ABDOMEN: Soft, appropriately tender. Fundus firm. EXT: trace LE edema. No evidence of DVT. Assessment/Plan Problem List (1) care and examination of lactating mother: Impression: - Continue routine care. Flexeril added to see if this will help with headache. Blood pressures normal. Will evaluate for possible discharge later this afternoon. We did review discharge precautions in case she is discharged later this afternoon. (2) Mixed anxiety and depressive disorder:
[2024-10-20] MEDS: CYCLOBENZAPRINE 10 MG TABLET PO PRN (13:05)
--- NOTE | 2024-10-20 13:55 | MISCELLANEOUS PROVIDER NOTE ---
Miscellaneous Provider Note - Note: Called by RN to evaluate spinal headache. Patient states frontal headache, w orse when standing. Sitting up eating a hamburger, states tolerable but worried it will get worse. I told her to drink plenty of fluids with caffeine and continue motrin/tylenol. Discussed epidural blood patch, patient does not want one at this time, but inquired about coming back it the headache gets worse at home. Also complained of neck strain, she believes from pushing for two hours.
[2024-10-20 14:57] VITALS: BP 129/77; TEMP 99
--- NOTE | 2024-10-20 15:56 | Discharge Summary ---
Discharge Summary Admit Date: 10/18/24 Discharge Date: 10/20/24 Discharging Provider: Darryn Clay MD HPI History of Present Illness: Admission Diagnosis: - [facility]UP at 40w0d - Suspected macrosomia - H/o PPD - Anemia in - pyelectasis - GBS neg - Rh + - Rubella immune - Varicella immune Discharge Diagnosis: - Same, delivered Procedures: Hospital Course: Claudia is a 29 yo now who presented at 40w0d in active labor. She had an with EBL 100cc. Baby is being transferred to [facility] this afternoon due to increasing LFTs. Claudia requests discharge home at time of baby transfer. OBJECTIVE: Vital signs reviewed LAB & IMAGING STUDIES: See below PLAN: Plan for discharge home with follow up in clinic in 1 week. Reviewed home care instructions and medications. Patient counseled regarding signs and symptoms of infection, excessive bleeding, vaginal rest and activity restrictions. Preeclampsia precautions were reviewed. Planning for Mirena IUD at 6wk visit. Discussed that additional support is available in our clinic if needed. Darryn Clay MD ALLERGIES Allergies Allergy/AdvReac Type Severity Reaction Status Date / Time No Known Drug Allergies Allergy Verified 10/18/24 16:07 MEDICATIONS Ambulatory Orders Medication Instructions Recorded Confirmed ascorbate calcium (vitamin C) 500 500 mg PO QDAY 10/04/24 10/19/24 mg tablet vits no.126-ferrous fum 1 tab PO DAILY 10/04/24 10/19/24 28 mg iron-folic acid 800 mcg tablet (Classic ) acetaminophen 500 mg tablet 1,000 mg (2 x 500 mg) PO Q8HR PRN 10/20/24 Mild Pain Or Fever>38c(100.4f) #60 tabs cyclobenzaprine 10 mg tablet 10 mg PO TID PRN Spasms #20 tabs 10/20/24 docusate sodium 100 mg capsule 100 mg PO BID #60 caps 10/20/24 ibuprofen 600 mg tablet 600 mg PO Q6HR PRN Moderate Pain 10/20/24 (Level 4-6) #60 tabs LABS 10/18/24 17:10 10/18/24 17:10 FOLLOW UP Follow Up: Follow up with OB clinic 1 week after dday of delivery. TIME SPENT Time Spent in Discharge (Minutes): 20 Discharge Plan Discharge Patient Disposition: 01 Home, Self Care Prescriptions: New cyclobenzaprine 10 mg Tablet 10 mg PO TID PRN (Reason: Spasms) Qty: 20 0RF acetaminophen 500 mg Tablet 1,000 mg PO Q8HR PRN (Reason: Mild Pain Or Fever>38c(100.4f)) Qty: 60 0RF docusate sodium 100 mg Capsule 100 mg PO BID Qty: 60 0RF ibuprofen 600 mg Tablet 600 mg PO Q6HR PRN (Reason: Moderate Pain (Level 4-6)) Qty: 60 0RF Continued Classic 28 mg iron- 800 mcg tablet 1 tab PO DAILY ascorbate calcium (vitamin C) 500 mg tablet 500 mg PO QDAY Discontinued ferrous sulfate 325 mg (65 mg iron) tablet,delayed release (DR/EC) 325 mg PO DAILY Qty: 60 2RF Print Language: Nepalese Patient Instructions: Vaginal After, Depression , Change Expect Parents
--- NOTE | 2024-10-20 16:12 | Labor Flowsheet ---
Labor Flowsheet Datetime Report Generated by CPN: 10/20/2024 16:12 Datetime: 10/20/2024 14:43 VITAL SIGNS NBP Sys/Ivana/Mean (mmHg): 129 : 77 : 89 Pulse: 84 Datetime: 10/20/2024 07:25 SpO2 (%): 99 Datetime: 10/20/2024 07:00 Stage of : Datetime: 10/19/2024 03:30 PAIN Pain Scale: 2 Pain Presence: Constant Pain Type: Ache Pain Location: Neck Pain Goal: 3 Pain Relief Measures: Comfort Measures Pain Assessment Comments: pt states neck pain from positioning and pushing Datetime: 10/19/2024 03:27 LaborFlag: Labor Datetime: 10/19/2024 03:00 UTERINE ACTIVITY Monitor Mode: External Frequency (min): 1-2.5 Quality: Strong Duration (sec): 60-110 Pattern: Normal: <= 5 Contractions in 10 Minutes Resting Tone (Palpate): Relaxed ASSESSMENT A Monitor Mode: Internal Scalp Electrode FHR Baseline Rate : 190 FHR Baseline Changes: Tachycardia Variability: Moderate 6-25 bpm Accelerations: 15X15 Decelerations: Variable Actions for Decelerations: IV Bolus; Sterile Vaginal Exam; Provider Notified; Other Comments: preparing for delivery; [employer] Operator in room for last 1-[address] Clay remains at [facility] aware of maternal and tachycardia Datetime: 10/19/2024 02:11 Monitor Interventions for FHR: FSE Applied Datetime: 10/19/2024 01:47 Patient Position/Activity: Right Lateral Datetime: 10/19/2024 00:56 VAGINAL EXAM Dilatation (cm): 9.5 Station: 0 Exam by: Obed Datetime: 10/19/2024 00:54 COMMUNICATION Communication: Provider at Bedside Datetime: 10/19/2024 00:21 Patient Care Comments: practice pushing Datetime: 10/19/2024 00:00 Notification Reason: Status Update; Status; Labor Status; Uterine Activity; Pain Datetime: 10/18/2024 23:53 Effacement (%): 90 Datetime: 10/18/2024 23:50 Temperature (C): 37.8 Datetime: 10/18/2024 23:42 Communication Comments: pt sleeping Datetime: 10/18/2024 23:34 Pain Coping: Sleeping Datetime: 10/18/2024 23:17 Anesthesia Comments: at bedside Datetime: 10/18/2024 22:55 Vaginal Bleeding: Normal Show Cervix, Consistency: Soft Cervix, Position: Midposition Datetime: 10/18/2024 22:29 Comfort Measures: Breathing/Relaxation; Anesthesia Notified Datetime: 10/18/2024 21:24 Strip Reviewed by: DR Clay Provider Notified (Name): Dr Clay Datetime: 10/18/2024 20:59 Membranes Ruptured Date/Time: 10/18/2024 18:23 Datetime: 10/18/2024 20:35 Provider Reviewed Strip: Yes Datetime: 10/18/2024 19:15 Contraction Comments: contractions coupling Datetime: 10/18/2024 18:45 Category: Category II Datetime: 10/18/2024 18:23 Membrane Status: Ruptured Membranes Rupture Method: Artificial Amniotic Fluid Color: Heavy Meconium Amniotic Fluid Amount: Large Datetime: 10/18/2024 18:15 Monitor Interventions for UA: [place] Adjusted Datetime: 10/18/2024 17:30 ANESTHESIA Epidural Procedure: Test Dose Datetime: 10/18/2024 17:19 PATIENT CARE IV/Blood Work: IV Started
== END 2024-10-20 15:00 | disposition home or self-care (01) | DRG 807 ==
LOC: WFO 15:57 → FBP 16:01
PROVIDERS: ADMIT Obstetrics & Gynecology; ATTEND Obstetrics & Gynecology
DX: F41.8 Other specified anxiety disorders; O76 Abnormality in fetal heart rate and rhythm complicating labor and delivery; O99.344 Other mental disorders complicating childbirth; Z79.899 Other long term (current) drug therapy; O36.63X0 Maternal care for excessive fetal growth, third trimester, not applicable or unspecified; O70.0 First degree perineal laceration during delivery; O89.4 Spinal and epidural anesthesia-induced headache during the puerperium; O99.02 Anemia complicating childbirth; O77.0 Labor and delivery complicated by meconium in amniotic fluid; Z37.0 Single live birth; O35.EXX0 Maternal care for other (suspected) fetal abnormality and damage, fetal genitourinary anomalies, not applicable or unspecified; Z3A.40 40 weeks gestation of pregnancy